=== PATIENT | male | born 1955 | race Caucasian/White ===

== ENCOUNTER 2024-07-17 04:45 | Emergency (ER) | payer OTHER, MEDICARE ==
[~2024-07-17] VITALS: Ht 190.5 cm; Wt 114.8 kg
[2024-07-17 05:18] LABS: BASOPHILS # (AUTO) 0.03 K/uL (0.00-0.20); BASOPHILS % (AUTO) 0.4 % (0.0-5.0); EOSINOPHILS # (AUTO) 0.31 K/uL (0.00-0.70); EOSINOPHILS % (AUTO) 4.4 % (0.0-8.0); HEMATOCRIT 39.6 % (42-54); IMMATURE GRANULOCYTE ABSOLUTE 0.03 K/uL (0-1); LYMPHOCYTES # (AUTO) 1.3 K/uL (1.0-4.8); LYMPHOCYTES % (AUTO) 17.9 % (21.0-51.0); MEAN CORPUSCULAR HEMOGLOBIN 29.7 pg (27.0-33.0); MEAN CORPUSCULAR HGB CONC 32.6 g/dL (32.0-36.0); MEAN CORPUSCULAR VOLUME 91.2 fL (79-99); MONOCYTES # (AUTO) 0.9 K/uL (0.1-1.0); MONOCYTES % (AUTO) 12.5 % (3.0-13.0); NEUTROPHILS # (AUTO) 4.5 K/uL (1.8-7.7); NEUTROPHILS % (AUTO) 64.4 % (40.0-77.0); PLATELET COUNT (AUTO) 203 K/uL (130-400); RED BLOOD CELL COUNT(AUTO) 4.34 MIL/uL (4.50-6.20); RED CELL DISTRIBUTION WIDTH 13.3 % (11.0-15.5)
--- NOTE | 2024-07-17 05:20 | ERN ---
ED Note History of Present Illness Stated Complaint: C/O BLOOD IN URINE; URINE CATHETER IN PLACE Chief Complaint: Blood in Urine: Time Seen by MD: 05:16 Dictation: This is a 68-year-old male who has chronic prostate issues was seen at [facility] 3 days ago on Tuesday and a urine sample and blood work was done and apparently a Brewster catheter was placed. Patient was given antibiotic but the could not remember the exact name. Over the next 24 hours the Brewster was leaking and they had to go back to the ER to inflate the bulb. Patient began experiencing hematuria since Tuesday but it got worse overnight and hence he came into the ER for further evaluation. No fevers chills or rigors. He was given referral to urologist that apparently could not accommodate him for many months Temperature 96.5 pulse 60 respirations 20 blood pressure 128/68 with a pulse ox imetry of 96% on room air His chronic medical problems include diabetes mellitus type 2, hypertension, BPH Allergies: Coded Allergies: No Known Allergies (Unverified Allergy, Unknown, 07/17/24) Home Meds Active Scripts Sulfamethoxazole/Trimethoprim (Bactrim Ds Tablet) 800 Mg-160 Mg Tablet, 1 TAB PO BID for 7 Days, #14 TAB 0 Refills Prov:CHACHA VYAS MD 07/17/24 Past Medical History Past Medical History: Diabetes-Type II, Hypertension Surgical History: Other RN Note Reviewed/Agreed w/PFSH: Yes Review of System Dictation Constitutional: Negative for fever,chills, and weight loss Eyes: Negative for injury, pain,redness, and discharge ENT: Negative for injury,pain or swelling Cardiovascular: Negative for chest pain, palpitations, and edema Respiratory: Negative for shortness of breath, cough, and wheezing, Abdomen/GI: Negative for abdominal pain, nausea, vomiting, diarrhea, and constipation Back: Negative for injury and pain : Negative for injury, positive for blood in the urine MS/Extremity: Negative for injury and deformity Skin: Negative for rash, and discoloration Neuro: Negative for headache, weakness, numbness, tingling, and seizure Psych: Negative for suicide ideation, homicidal ideation, and hallucinations Initial Vital Sign VS Vital Signs Date Time Temp Pulse Resp B/P (MAP) Pulse Ox O2 Delivery O2 Flow Rate FiO2 07/17/24 04:48 96.4 60 20 128/68 96 Room Air 07/17/24 05:10 0 21 Physical Exam Dictation General: awake, alert, NAD Head/Face: Normocephalic, atraumatic Eyes: PERRL, EOMI, vision at baseline ENT: oral cavity clear, TMs clear, no signs of infection Neck: Trachea midline, supple, no nuchal rigidity Cardiovascular: RRR, normal S1/S2, No MRGs, no JVD Respiratory: CTAB, no respiratory distress, No rales or wheezes Abdomen: Soft, non-tender, non-distended, normal bowel sounds, no guarding or rebound. Indwelling Brewster catheter in place with bloody urine Skin: Warm, dry, normal turgor, no rash MS/Extremity: Pulses equal, no cyanosis, neurovascular intact, FROM Neuro: COAx4, GCS 15, strength 5/5, CN 2-12 intact, normal cerebellar exam, normal gait, Psych: Normal behavior, mood, and affect normal Extremities-trace edema without any palpable cords, Homans sign is negative Results (Laboratory/Radiology) Laboratory/Radiology Laboratory Tests Test 07/17/24 05:10 07/17/24 05:12 White Blood Count 7.0 K/uL (4.8-10.8) Red Blood Count 4.34 MIL/uL (4.50-6.20) L Hemoglobin 12.9 g/dL (14.0-18.0) L Hematocrit 39.6 % (42-54) L Mean Corpuscular Volume 91.2 fL (79-99) Mean Corpuscular Hemoglobin 29.7 pg (27.0-33.0) Mean Corpuscular Hemoglobin Concent 32.6 g/dL (32.0-36.0) Red Cell Distribution Width 13.3 % (11.0-15.5) Platelet Count 203 K/uL (130-400) Mean Platelet Volume 10.1 fL (7.5-10.5) Immature Granulocyte % (Auto) 0.4 % (0-1) Neutrophils (%) (Auto) 64.4 % (40.0-77.0) Lymphocytes (%) (Auto) 17.9 % (21.0-51.0) L Monocytes (%) (Auto) 12.5 % (3.0-13.0) Eosinophils (%) (Auto) 4.4 % (0.0-8.0) Basophils (%) (Auto) 0.4 % (0.0-5.0) Neutrophils # (Auto) 4.5 K/uL (1.8-7.7) Lymphocytes # (Auto) 1.3 K/uL (1.0-4.8) Monocytes # (Auto) 0.9 K/uL (0.1-1.0) Eosinophils # (Auto) 0.31 K/uL (0.00-0.70) Basophils # (Auto) 0.03 K/uL (0.00-0.20) Absolute Immature Granulocyte (auto 0.03 K/uL (0-1) Nucleated Red Blood Cells 0.0 % (0.0-0.19) Sodium Level 134 mmol/L (136-145) L Potassium Level 3.8 mmol/L (3.5-5.1) Chloride Level 99 mmol/L (101-111) L Carbon Dioxide Level 31 mmol/L (21-32) Blood Urea Nitrogen 14 mg/dL (7-18) Creatinine 0.7 mg/dL (0.5-1.3) Glomerular Filtration Rate Calc 100 mL/min (>90) Random Glucose 156 mg/dL (70-105) H Total Calcium 9.2 mg/dL (8.5-10.1) Total Creatine Kinase 67 U/L (21-232) Urine Color RED (YELLOW) H Urine Appearance CLOUDY (CLEAR) H Urine pH 5.5 (5.0-8.0) Urine Specific [place] 1.025 (1.001-1.031) Urine Protein >=300 mg/dL (NEGATIVE) H Urine Glucose (UA) NEGATIVE mg/dL (NEGATIVE) Urine Ketones 5 mg/dL (NEGATIVE) H Urine Occult Blood LARGE (NEGATIVE) H Urine Nitrate POSITIVE (NEGATIVE) H Urine Bilirubin NEGATIVE mg/dL (NEGATIVE) Urine Urobilinogen 2.0 mg/dL (0.2-1.0) H Urine Leukocyte Esterase MODERATE Alo/uL Urine RBC TNTC /HPF (0-1) H Urine WBC 6-10 /HPF (0-1) H Urine Squamous Epithelial Cells Few /HPF (0-2) Urine Bacteria Rare /HPF (None Seen) Labs Reviewed?: Yes ED Course ED Course Orders Procedure Category Date Status Time Cbc With Differential LAB 07/17/24 Complete 05:02 Basic Metabolic Panel LAB 07/17/24 Complete 05:02 Urinalysis Profile LAB 07/17/24 Complete 05:02 Creatine Kinase, Total LAB 07/17/24 Complete 05:02 Culture Urine TEDDY 07/17/24 In Process 05:29 Ceftriaxone 1g Vial PHA 07/17/24 Complete (Rocephine 1g Inj) 06:00 0.9% Nacl 500ml PHA 07/17/24 Complete Iv.Soln (Ns 500ml 06:00 Current Medications Medications (Trade) Dose Ordered Sig/Sudha Route PRN Reason Start Time Stop Time Status Last Admin Dose Admin Ceftriaxone Sodium (ROCEphine 1G INJ) 1 gm ONCE ONCE IVPB 07/17/24 06:00 07/17/24 06:01 DC 07/17/24 05:58 Sodium Chloride 500 ml @ 0 mls/hr ONCE ONCE IV 07/17/24 06:00 07/17/24 06:01 DC 07/17/24 05:58 Vital Signs Date Time Temp Pulse Resp B/P (MAP) Pulse Ox O2 Delivery O2 Flow Rate FiO2 07/17/24 05:10 68 19 133/63 95 Room Air* 0 21 07/17/24 04:48 96.4 60 20 128/68 96 Room Air We will perform diagnostic labs, and administer medications according to the patient's complaint. Once the results are available, will review and personally interpreted the labs to rule out any acute life-threatening emergency the trach require immediate intervention and treatment. I will then re-evaluate the patient after treatment and diagnostic exams have return to determine whether the patient requires any further testing, can safely be discharged home or need further admission to hospital for additional treatment and evaluation. Labs reviewed CBC showed a hemoglobin of 12.9 white count of 7000., total CK 67. BNP 7 showed a sodium of 134 chloride 99 BUN and creatinine are 14 and 0.7 with a glucose of 156 Urinalysis was very abnormal with a too numerous to count RBCs moderate to high leuko esterase +increased WBCs. Gentle hydration and IV antibiotic therapy I had a long discussion with the patient and spouse about possible causes of his hematuria most likely being traumatic Brewster placement, UTI We will DC to home on p.o. antibiotics and asked her to hold the other antibiotic that was given. Medical Decision Making MDM MDM: Differential diagnosis: BPH, UTI, nephrolithiasis Rationale: Tests considered and ordered secondary to shared decision making include: Previous outside records reviewed: Old ER visits. Risk of complication and/or morbidity or mortality of patient management: None Medications-Per medication reconciliation Need for hospitalization: Patient does not meet criteria for hospitalization. Need for emergency major/minor surgery: No There are no social concerns with this patient. Prescription drug management Prescriptions will include symptomatic care Patient's prior external medical records from other ER visits were reviewed by me as indicated. Prior testing and results from previous visits were reviewed. Prior tests were taken into account with medical decision making and resource utilization, independent historian/historians were used to obtain complete medical history. I independently interpreted the test that were performed, results were reviewed by me and considered findings on radiology if ordered. Medical management and examination interpretation discussions were had by me with other qualified healthcare professionals as indicated for the patient's care. Problem List Problem List: (1) BPH (benign prostatic hyperplasia) (2) Diabetes mellitus (3) UTI (urinary tract infection) (4) Hematuria DX & DISP Disposition: Discharge Departure Impression: Primary Impression: Hematuria Additional Impressions: UTI (urinary tract infection), Diabetes mellitus, BPH (benign prostatic hyperplasia), Indwelling Brewster catheter present Ruled Out: Hypertensive arterionephrosclerosis of transplanted kidney Condition: Stable Scripts Sulfamethoxazole/Trimethoprim (Bactrim Ds Tablet) 800 Mg-160 Mg Tablet 1 TAB PO BID for 7 Days, #14 TAB 0 Refills Prov: CHACHA VYAS MD 07/17/24 Additional Instructions: Patient and the caregiver have been informed of all the diagnostic tests and the imaging conducted during the today's visit to the emergency room and has verbalized understanding of the results I have personally reviewed and interpreted all diagnostic exams performed here in the ER today as well as the vital signs documented by the nursing staff. The patient is now being discharged to home and should follow up with the primary care physician or the specialist as directed by the ER staff. Follow-up with primary care provider in 1 to 2 days. Take medications as directed here in the emergency room. Okay to continue home medications unless otherwise discussed during your visit in the emergency room today. Return to your nearest emergency room if symptoms worsen or if there is no improvement. Call 911 if you need immediate assistance. Take Tylenol or Motrin [id number] as needed and if no contraindications are present. Increase oral hydration. A wound culture or urine culture was ordered here in the emergency room department please follow-up with primary care provider and advise them to get repeat ports from our facility. If you had any Derrell wrap/splints that were applied here, please do not remove them until you see your primary care or specialty. CHACHA VYAS MD Jul 17, 2024 05:20
[2024-07-17 05:25] LABS: BILIRUBIN,URINE NEGATIVE (NEGATIVE); GLUCOSE, URINE (UA) NEGATIVE (NEGATIVE); KETONES,URINE 5 mg/dL (NEGATIVE); LEUKOCYTE ESTERASE ,URINE MODERATE Leu/uL (NEGATIVE); NITRATE,URINE POSITIVE (NEGATIVE); OCCULT BLOOD,URINE LARGE (NEGATIVE); PH,URINE 5.5 (5.0-8.0); PROTEIN,URINE >=300 mg/dL (NEGATIVE)
[2024-07-17 05:28] LABS: ADD UA MICROSCOPIC YES; APPEARANCE,URINE CLOUDY (CLEAR); COLOR,URINE RED (YELLOW)
[2024-07-17 05:29] LABS: CREATININE 0.7 mg/dL (0.5-1.3); POTASSIUM 3.8 mmol/L (3.5-5.1)
[2024-07-17 05:35] LABS: RBC,URINE TNTC /HPF (0-1)
[2024-07-17 05:36] LABS: BACTERIA,URINE Rare /HPF (None Seen); SQUAMOUS EPITHELIAL CELL,UR Few /HPF (0-2)
[2024-07-17] MEDS ORDERED: SULF1TAB42 PO (05:50)
[2024-07-17] MEDS: cefTRIAXone 1G VIAL IVPB ONE (05:58)
[2024-07-17] MEDS: 0.9% NACL 500ML IV.SOLN 500 ML IV ONE (05:58)
[2024-07-17 07:40] VITALS: BP 137/68; PULSE 58; RESP 18; TEMP 97.7; O2SAT 95
== END 2024-07-17 07:46 | disposition home or self-care (01) ==
LOC: EDH 04:45
DX: R31.9 Hematuria, unspecified (principal); N39.0 Urinary tract infection, site not specified; N40.0 Benign prostatic hyperplasia without lower urinary tract symptoms; E11.9 Type 2 diabetes mellitus without complications; I10 Essential (primary) hypertension; Z96.0 Presence of urogenital implants
CPT/HCPCS: 99284; 96365; 96366; 82550; 80048; 85025; 87086; 81001; 36415; J0696

== ENCOUNTER 2024-07-20 05:47 | Emergency (ER) | payer OTHER, MEDICARE ==
[~2024-07-20] VITALS: Ht 190.5 cm; Wt 115.4 kg
[~2024-07-20 05:47] MED LIST: SULF1TAB42 PO
--- NOTE | 2024-07-20 05:58 | NUR ---
PT CARE ASSUMED AT THIS TIME
[2024-07-20 05:59] VITALS: TEMP 98.1
--- NOTE | 2024-07-20 05:59 | ERN ---
ED Note History of Present Illness Stated Complaint: REMOVE ARZOLA Chief Complaint: Urinary Catheter Problems Time Seen by MD: 05:57 Dictation: This is a 68-year-old male who has chronic prostate issues was seen at [facility] a week ago and a urine sample and blood work was done and apparently a Arzola catheter was placed. Patient was given antibiotic but the could not remember the exact name. Over the next 24 hours the Arzola was leaking and they had to go back to the ER to inflate the bulb. Patient began experiencing hematuria but it got worse overnight and hence he came into the ER for further evaluation on 07/17/2024. No fevers chills or rigors. He was given referral to urologist that apparently could not accommodate him for many months. He was given Bactrim for severe complicated UTI. He was instructed to come back to the ER if he is unable to follow up with urologist to give a trial of removal of Arzola and assess response. So he came back today with his for the same Hematuria has resolved completely and he is urine is straw yellow color Temperature 97.9 pulse 65 respirations 20 blood pressure 140/71 with a pulse oximetry of 96% on room air His chronic medical problems include diabetes mellitus type 2, hypertension, BPH Allergies: Coded Allergies: No Known Allergies (Unverified Allergy, Unknown, 07/17/24) Home Meds Active Scripts Sulfamethoxazole/Trimethoprim (Bactrim Ds Tablet) 800 Mg-160 Mg Tablet, 1 TAB PO BID for 7 Days, #14 TAB 0 Refills Prov:CHACHA VYAS MD 07/17/24 Past Medical History Past Medical History: Diabetes-Type II, Hypertension, Other Additional Past Medical Hx: ELARGED PROSTATE Surgical History: Other Surgical History Other: NECK, BILATERAL KNEE RN Note Reviewed/Agreed w/PFSH: Yes Review of System Dictation Constitutional: Negative for fever,chills, and weight loss Eyes: Negative for injury, pain,redness, and discharge ENT: Negative for injury,pain or swelling Cardiovascular: Negative for chest pain, palpitations, and edema Respiratory: Negative for shortness of breath, cough, and wheezing, Abdomen/GI: Negative for abdominal pain, nausea, vomiting, diarrhea, and constipation Back: Negative for injury and pain : Negative for injury, bleeding and discharge MS/Extremity: Negative for injury and deformity Skin: Negative for rash, and discoloration Neuro: Negative for headache, weakness, numbness, tingling, and seizure Psych: Negative for suicide ideation, homicidal ideation, and hallucinations Initial Vital Sign VS Vital Signs Date Time Temp Pulse Resp B/P (MAP) Pulse Ox O2 Delivery O2 Flow Rate FiO2 07/20/24 05:48 97.9 65 16 140/71 97 Room Air 07/20/24 05:59 0 21 Physical Exam Dictation General: awake, alert, NAD Head/Face: Normocephalic, atraumatic Eyes: PERRL, EOMI, vision at baseline ENT: oral cavity clear, TMs clear, no signs of infection Neck: Trachea midline, supple, no nuchal rigidity Cardiovascular: RRR, normal S1/S2, No MRGs, no JVD Respiratory: CTAB, no respiratory distress, No rales or wheezes Abdomen: Soft, non-tender, non-distended, normal bowel sounds, no guarding or rebound.. Indwelling Arzola with no hematuria but striae low urine Skin: Warm, dry, normal turgor, no rash MS/Extremity: Pulses equal, no cyanosis, neurovascular intact, FROM Neuro: COAx4, GCS 15, strength 5/5, CN 2-12 intact, normal cerebellar exam, normal gait, Psych: Normal behavior, mood, and affect normal Extremities-trace edema without any palpable cords, Homans sign is negative Results (Laboratory/Radiology) Labs Reviewed?: Yes ED Course ED Course Vital Signs Date Time Temp Pulse Resp B/P (MAP) Pulse Ox O2 Delivery O2 Flow Rate FiO2 07/20/24 07:05 65 16 120/67 95 Room Air* 0 21 07/20/24 05:59 98.1 64 17 132/66 95 Room Air* 0 21 07/20/24 05:48 97.9 65 16 140/71 97 Room Air We will discontinue the Arzola catheter and monitor him to see if patient can urinate by himself. So be trained for straight cath. I updated both patient and spouse about the plan of care and they verbalized full understanding 6:15 a.m. Arzola discontinued. No pain bleeding or any obvious discomfort so far Plan to discharge with straight cath urination training Medical Decision Making MDM MDM: Differential diagnosis: BPH, indwelling Arzola Rationale: Tests considered and ordered secondary to shared decision making include: Previous outside records reviewed: Old ER visits. Risk of complication and/or morbidity or mortality of patient management: None Medications-Per medication reconciliation Need for hospitalization: Patient does not meet criteria for hospitalization. Need for emergency major/minor surgery: No There are no social concerns with this patient. Prescription drug management Prescriptions will include symptomatic care Patient's prior external medical records from other ER visits were reviewed by me as indicated. Prior testing and results from previous visits were reviewed. Prior tests were taken into account with medical decision making and resource utilization, independent historian/historians were used to obtain complete medical history. I independently interpreted the test that were performed, results were reviewed by me and considered findings on radiology if ordered. Medical management and examination interpretation discussions were had by me with other qualified healthcare professionals as indicated for the patient's care. Problem List Problem List: (1) Indwelling Arzola catheter present (2) Diabetes mellitus (3) BPH (benign prostatic hyperplasia) DX & DISP Disposition: Discharge Departure Impression: Primary Impression: BPH (benign prostatic hyperplasia) Additional Impressions: Indwelling Arzola catheter present, Hematuria Condition: Stable Additional Instructions: Patient and the caregiver have been informed of all the diagnostic tests and the imaging conducted during the today's visit to the emergency room and has verbalized understanding of the results I have personally reviewed and interpreted all diagnostic exams performed here in the ER today as well as the vital signs documented by the nursing staff. The patient is now being discharged to home and should follow up with the primary care physician or the specialist as directed by the ER staff. Follow-up with primary care provider in 1 to 2 days. Take medications as directed here in the emergency room. Okay to continue home medications unless otherwise discussed during your visit in the emergency room today. Return to your nearest emergency room if symptoms worsen or if there is no improvement. Call 911 if you need immediate assistance. Take Tylenol or Motrin [id number] as needed and if no contraindications are present. Increase oral hydration. A wound culture or urine culture was ordered here in the emergency room department please follow-up with primary care provider and advise them to get repeat ports from our facility. If you had any Derrell wrap/splints that were applied here, please do not remove them until you see your primary care or specialty. Referrals: SELF,REFERRAL (PCP) CHACHA VYAS MD Jul 20, 2024 05:59
--- NOTE | 2024-07-20 06:03 | NUR ---
PER ED MD THOPU REQUEST, ARZOLA CATHETER TO BE REMOVED.
--- NOTE | 2024-07-20 06:11 | NUR ---
ARZOLA CATHETER REMOVED AT THIS TIME
--- NOTE | 2024-07-20 06:15 | NUR ---
PT GIVEN A URINAL AT THIS TIME TO ATTEMPT TO URINATE ON THEIR OWN.
--- NOTE | 2024-07-20 06:24 | NUR ---
PER ED MD VYAS, PT SUPPLIED WITH STRAIGHT CATH KIT AT THIS TIME. BEDSIDE EDUCATION TAUGHT TO PT AND OF HOW TO USE THE STRAUGHT CATH KIT AND WHEN. PT VERBILIZED UNDERSTANDING OF EDUCATION AT THIS TIME.
[2024-07-20 07:05] VITALS: BP 120/67; PULSE 65; RESP 16; O2SAT 95
--- NOTE | 2024-07-20 07:05 | NUR ---
REPORT GIVEN TO MOOSE MENDOZA AT THIS TIME
--- NOTE | 2024-07-20 08:19 | NUR ---
PT HAS VOIDED A TOTAL OF 6 TIMES PRIOR TO PT LEAVING.
== END 2024-07-20 08:23 | disposition home or self-care (01) ==
LOC: EDH 05:47
DX: N40.0 Benign prostatic hyperplasia without lower urinary tract symptoms (principal); R31.9 Hematuria, unspecified; E11.9 Type 2 diabetes mellitus without complications; I10 Essential (primary) hypertension; Z96.0 Presence of urogenital implants
CPT/HCPCS: 99281